=== PATIENT | male | born 1985 | race Caucasian/White ===

== ENCOUNTER 2018-07-23 01:33 | Emergency (ER) | END 2018-07-23 03:29 | disposition home or self-care (01) ==

== ENCOUNTER 2019-04-20 15:54 | Emergency (ER) | payer SELFPAY ==
[~2019-04-20] VITALS: Ht 165.1 cm; Wt 80.0 kg
[~2019-04-20 15:54] MED LIST: HYDR25SU23 PR
[2019-04-20 15:57] VITALS: Ht 165.1 cm; Wt 80.0 kg
[2019-04-20 16:30] VITALS: BP 131/78; PULSE 89; RESP 17
--- NOTE | 2019-04-20 17:02 | ERD ---
ER Documentation Chief Complaint Chief Complaint UNCLEAR IF TOOK 1 OR 2 TAB OF WELLBUTRIN 150 MG AT 1030 AM,FEELS SHAKY HPI 33-year-old male with a history of depression and PTSD presenting after possibly taking 2 tablets of Wellbutrin this morning instead of his prescribed dose which is 1. He states that afterwards he felt somewhat shaky, pressure and has had, and felt his heart racing. He was very anxious. This morning when he took his medicine, he was unsure if he had already taken it. He usually takes 150 mg twice daily. This morning he thinks he took 300 accidentally. He denies any suicidal thoughts or intentions. Currently he is feeling much better than he was prior to coming in. He is denying any chest pain, shortness of breath, headache, or loss of consciousness. ROS All systems reviewed and are negative except as per history of present illness. Medications Home Meds Active Scripts Hydrocortisone Acetate (Anusol-Hc) 25 Mg Supp.rect, 1 SUPP OK BID PRN for HEMORROID PAIN/ITCHING, #12 SUPP.RECT Prov:ITZ BRAR 07/23/18 PMhx/Soc Medical and Surgical Hx: pt denies Surgical Hx Hx Miscellaneous Medical Probl: Yes (pt takes Truvada but hiv neg) Hx Alcohol Use: No Hx Substance Use: Yes (ghb) Hx Tobacco Use: No FmHx Family History: No diabetes Physical Exam Vitals Vital Signs Date Temp Pulse Resp B/P (MAP) Pulse Ox O2 O2 Flow FiO2 Time Delivery Rate 04/20/19 98.1 99 18 150/72 99 15:57 (98) Physical Exam Const: No acute distress Head: Atraumatic Eyes: Normal Conjunctiva, PERRLA, EOMI ENT: Normal External Ears, Nose and Mouth. Neck: Full range of motion. No meningismus. Resp: Clear to auscultation bilaterally Cardio: Regular rate and rhythm, no murmurs Abd: Soft, non tender, non distended. Normal bowel sounds Skin: No petechiae or rashes Back: No midline or flank tenderness Ext: No cyanosis, or edema Neur: Awake and alert, normal speech, moving all extremities Psych: Normal Mood and Affect Procedures/MDM Patient is presenting after an accidental overdose of Wellbutrin this morning. 300 mg Wellbutrin is not toxic but will cause side effects such as the ones the patient was experiencing. At this time he is hemodynamically stable but borderline tachycardic. However he feels much better and I do not think he needs any medical intervention at this time. I recommend that he skip his dose tonight for Wellbutrin and start his normal dose tomorrow morning. All questions were answered. Patient was discharged in a stable condition. Patient's blood pressure was elevated (>120/80) but appears stable without evidence of hypertension emergency or urgency. The patient was counseled about the risks of hypertension and urged to pursue outpatient monitoring and therapy within a week with their primary care physician. Departure Diagnosis: Primary Impression: Accidental overdose Encounter type: initial encounter Qualified Codes: T50.901A - Poisoning by unspecified drugs, medicaments and biological substances, accidental (unintentional), initial encounter Condition: Stable JESSICA SANTOS MD Apr 20, 2019 17:02
== END 2019-04-20 16:30 | disposition home or self-care (01) ==
LOC: E/R 15:54
DX: T43.291A Poisoning by other antidepressants, accidental (unintentional), initial encounter (principal)
CPT/HCPCS: 99282

== ENCOUNTER 2019-06-08 14:51 | Emergency (ER) | payer OTHER ==
[~2019-06-08] VITALS: Ht 167.6 cm; Wt 88.0 kg
[~2019-06-08 14:51] MED LIST changes: +LOPE2CAP PO
[2019-06-08 14:54] VITALS: BP 156/94; PULSE 96; RESP 18; Ht 167.6 cm; Wt 88.0 kg
[2019-06-08] MEDS ORDERED: LOPERAMIDE 2 MG CAP PO ONE (15:30)
[2019-06-08] MEDS ORDERED: SOD CHLORIDE 0.9% 1,000 ML IV ONE (15:30)
== END 2019-06-08 16:53 | disposition home or self-care (01) ==
LOC: E/R 14:51 → FTE 16:53
DX: K59.1 Functional diarrhea (principal)
CPT/HCPCS: 80048; 85025; 96360; 99284; J7030